=== PATIENT | female | born 1960 | race Caucasian/White ===

== ENCOUNTER 2017-01-02 15:46 | Emergency (ER) | payer OTHER ==
[~2017-01-02] VITALS: Ht 165.1 cm; Wt 51.4 kg
[2017-01-02 15:50] VITALS: BP 113/67; PULSE 66; RESP 18; O2SAT 100
--- NOTE | 2017-01-02 15:51 | ED.REPORT ---
HPI-Extremity Problem Lower Date of Service Jan 02, 2017 ED Provider: Dr. Gomez Pt is a 56 y/o female presenting to the ED due to right ankle injury onset 1400 today. The pt inverted her ankle and then landed on it which has been causing her significant pain and swelling since the injury. She has not been able to walk since the injury. She denies numbness, weakness, or other site of injury. She has sprained her ankle many times previously but has never experienced this much pain. Nursing Notes Stated Complaint: R ANKLE INJURY Chief Complaint: Extremity Trauma Nursing Notes Reviewed: Yes Allergies: Coded Allergies: Opioids - Morphine Analogues (Verified Allergy, Unknown, 01/02/17) CODEINE hydrocodone bitartrate (Verified Allergy, Unknown, 01/02/17) CODEINE hydromorphone (Verified Allergy, Unknown, 01/02/17) CODEINE oxycodone (Verified Allergy, Unknown, 01/02/17) CODEINE Uncoded Allergies: CODEINE (Allergy, Unknown, 05/30/04) Opiate Agonists (Narcotics) (Allergy, Unknown, 05/30/04) CODEINE PEANUTS, ALL OTHER NUTS (Allergy, Unknown, 05/30/04) General Time Seen by MD: 15:52 Chief Complaint Ankle injury right Hx Obtained From: Patient Arrived By: Walk-in, Wheelchair Onset Occurred: 1 - 4 hours ago Symptom Duration: Since onset Caused by: Body motion Location: : Ankle right Quality: Painful Severity: Current: Moderate Severity: Maximum: Moderate Exacerbated by: Range of motion Similar Sx Previous: No Past Medical History Past Medical History Hx headaches Osteoarthritis Depression Anxiety Psychiatric admission Past Surgical History Tubal ligation Cervical polyp removal Smoking History Never Smoker Social History Alcohol Use: "Social" Drug Use: Denies drug use Ambulatory Status Independent Review of Systems Musculoskeletal: Reports: Extremity pain, Extremity swelling Neurologic: Denies: Numbness, Weakness Complete sys rev & neg: except as marked. Physical Exam Initial Vital Signs Vital Signs (First) Date Time Temp Pulse Resp B/P Pulse Ox O2 Delivery O2 Flow Rate FiO2 01/02/17 15:50 36.4 66 18 113/67 100 Room Air Initial VS: Reviewed, Vital signs normal Head / Eyes: Atraumatic, Normocephalic, PERRL ENT: Mucous membranes moist, Conjunctiva normal, No scleral icterus Neck: Supple, Full range of motion Respiratory: Breath sounds normal, Clear to auscultation, No respiratory distress Cardiovascular: Regular rate & rhythm, Heart sounds normal, Intact distal pulses Abdomen / GI: Soft, No distention Skin: Warm, Dry, No cyanosis Neurologic: Alert, Oriented, Nonfocal Psychiatric: Mood/affect normal, Behavior normal, Normal thought content Lower Extremity / Pelvis / MS: No deformity, Neurologic intact, Vascular intact , No compartment syndrome Tender over right lateral malleolus Swelling right lateral ankle Tender superior to malleoulus Interpretation & Diagnostics X-Ray Interpretation Xray Interpretation: Distal fibula fracture, non-displaced Study Performed: 3 view X-Ray Ordered: Ankle right Interpretation / Wet Read by: Wet read ED physician Re-Eval/Medical Decision Med Decision/Clinical Course In summary, the patient is a generally healthy 56-year-old female who presents with right ankle pain after inverting her right ankle. She has significant tenderness about the lateral malleolus and superior to the lateral malleolus. She is neurovascular intact distal to the injury. Plain films demonstrate a minimally displaced right distal fibular fracture. The patient declined any narcotic pain medications and was treated with ibuprofen. She reported significant improvement in her pain. The patient was placed in a short leg posterior/stirrup splint. She was provided with crutches. She remained neurovascular intact after splint placement. She was referred to orthopedic surgery and will call later today or Thursday to arrange for a follow-up appointment. Follow up and return precautions were reviewed in detail and she was discharged in good condition. Re-Evaluation/Progress : Time of Eval: 16:52 Post-Splint Evaluation: Cap refill < 2 seconds, Distal sensation intact, Distal motor func intact, No signs compartment synd Patient Status: Condition improved, Pain improved Re-Evaluation/Progress Note: Pt rechecked. Discussed positive imaging results. Informed pt of plan for treatment. Pt understands and agrees with plan for treatment. F/U and RTER warnings given. All questions addressed. Counseled Regarding: Diagnosis, Need for follow-up, When/why to return to ED Discharge & Departure Impression: Primary Impression: Fracture of distal fibula Encounter type: initial encounter Fracture type: closed Fracture morphology : unspecified fracture morphology Laterality: right Qualified Code: S82.831A - Other fracture of upper and lower end of right fibula, initial encounter for closed fracture Additional Impression: Fall from ground level Disposition: Home Discharge Condition All VS Reviewed: Yes Condition: Stable Patient Instructions: Ankle Fracture (ED), Splint Care (ED) Additional Instructions: Thank you for seeking care at emergency room. You have a fracture of your distal fibula. It is not displaced and sure heal well. Take Ibuprofen and Tylenol as needed for pain. Stay in the splint and use crutches so that you do not weight bear until you are seen by orthopedics. You should follow-up with an orthopedic physician next week. A referral has been provided for you today. Please call their office Thursday morning to set up an appointment. You should return to the ED immediately if you develop severe uncontrolled pain , numbness or weakness of your foot or toes, or any other concerning signs or symptoms. Thank you for letting us partake in your care today. Referrals: Florence Nielson MD (PCP) Kirill Crowley Attestation Portions of this note were transcribed by Kameron Breaux. I, Dr. Gomez personally performed the history, physical exam and medical decision-making; I reviewed and confirmed the accuracy of the information in the transcribed note. Signed by Johnny Jordan, 01/02/17 - 1783 copies to: Kirill Crowley DO; Florence Nielson MD, Beck O MD Jan 02, 2017 15:51 KAMERON BREAUX Jan 02, 2017 16:00
--- NOTE | 2017-01-02 17:05 | DRSVH ---
PROCEDURE: X-RAY RIGHT ANKLE, MINIMUM THREE VIEWS ([id number]) INDICATIONS: trauma TECHNIQUE: 3 views of the ankle were acquired. COMPARISON: None. FINDINGS: Bones: Minimally laterally displaced lateral malleolar spiral fracture is present. Ankle mortise is symmetric. Soft tissue swelling. Soft tissues: No tibiotalar joint effusion. Achilles tendon appears normal. IMPRESSION: Distal fibular fracture. Dictated by: Rob Mendoza [facility] Interpreted: Ava Keating MD on 01/02/2017 at 16:57 Transcribed by: LAYA on 01/02/2017 at 16:58 Approved by: Ava Keating MD, PhD on 01/02/2017 at 16:59
[2017-01-14] MEDS ORDERED: DEXT20TA8 PO (15:03)
[2017-01-14] MEDS ORDERED: CHOL10008 PO (15:03)
[2017-01-14] MEDS ORDERED: CYCL10TA9 PO (15:03)
[2017-01-14] MEDS ORDERED: ASEN10TA9 SL (15:03)
== END 2017-01-02 17:48 | disposition home or self-care (01) ==
LOC: SED 15:46
DX: S82.831A Other fracture of upper and lower end of right fibula, initial encounter for closed fracture (principal); W18.30XA Fall on same level, unspecified, initial encounter; Y93.89 Activity, other specified; Y92.69 Other specified industrial and construction area as the place of occurrence of the external cause; Y99.0 Civilian activity done for income or pay; Z88.5 Allergy status to narcotic agent

== ENCOUNTER 2017-01-15 10:02 | Day surgery (SDC) | payer OTHER ==
[~2017-01-15] VITALS: Ht 167.6 cm; Wt 51.3 kg
[~2017-01-15 10:02] MED LIST: 0.9% Sodium Chloride 1,000 ML IV PRN; ASEN10TA9 SL; CHOL10008 PO; CYCL10TA9 PO; DEXT20TA8 PO; Sodium Chloride LOK Flush 10 mL Syringe IV PRN; fentaNYL-PF 50 mCg/mL 2 mL Inj IVPUSH PRN
[2017-01-15 10:30] VITALS: BP 132/74; PULSE 98; O2SAT 99
[2017-01-15 11:39] VITALS: BP 112/62; PULSE 60; RESP 16; O2SAT 100
[2017-01-15 11:57] VITALS: BP 118/52; PULSE 74; O2SAT 100
--- NOTE | 2017-01-15 13:55 | ENDO ---
[address] [address] ENDOSCOPY PROCEDURE PATIENT: CHAU FERNANDO : 1960 MR#: [id number] ADMIT: 01/15/2017 JOB ID: [id number] DATE: 01/15/2017 PROCEDURE: Colonoscopy. INDICATIONS: Screening. The patient's ASA classification is 2. Mallampati score is 2. MEDICATIONS: 1. Versed 5 mg. 2. Fentanyl 150 mcg. INSTRUMENT USED: PCF H 180 AL. PREPARATION QUALITY: Was good. PROCEDURE DETAILS: After informed consent was obtained, the patient was brought into the GI suite, where she was placed on oxygen via nasal cannula and monitored with continuous pulse oximeter, telemetry and blood pressure monitoring. A time-out was performed. Then, she was placed in the left lateral decubitus position and medications were administered for sedation. Digital rectal examination was performed and was unremarkable. The colonoscope was then inserted into the rectum and advanced under direct visualization to the cecum, which was identified by the presence of the ileocecal valve and appendiceal orifice. Once the cecum was reached, the colonoscope was withdrawn back into the rectum. I was unable to perform retroflexion in the rectum secondary to a short and narrow rectum. However, the rectum was examined closely as we withdrew the colonoscope out of the rectum. FINDINGS: A 6-7 mm pedunculated sessile polyp. Polyp was removed using a hot snare. IMPRESSION: Sigmoid polyp. RECOMMENDATIONS: 1. Avoid nonsteroidal anti-inflammatory drugs and anticoagulants for 72 hours. 2. Repeat colonoscopy pending polyp pathology results. COMPLICATIONS: None. ESTIMATED BLOOD LOSS: 0.
--- NOTE | 2017-01-19 11:17 | PATH ---
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 The specimen is entirely submitted in one cassette. 01/15/2017 DAC MICRO DESCRIPTION: See diagnosis. ICD-9 CODES: CPT CODES: 1: 48995 Electronically Signed Out Nehemiah Zapata MD [facility] Pathology [facility] [address], [place] [address] Technical component performed at [facility], [facility] [address], [place], [address]
== END 2017-01-15 23:59 | disposition home or self-care (01) ==
LOC: END 10:02
PROVIDERS: ATTEND Internal Medicine Gastroenterology
DX: Z12.11 Encounter for screening for malignant neoplasm of colon (principal); D12.5 Benign neoplasm of sigmoid colon; B18.2 Chronic viral hepatitis C; F17.210 Nicotine dependence, cigarettes, uncomplicated
CPT/HCPCS: 45385; 88305; 99153; G0500; J2250; J3010; J7030